=== PATIENT | female | born 1965 | race Caucasian/White ===

== ENCOUNTER 2017-05-03 10:39 | Emergency (ER) | payer MEDICAID ==
[~2017-05-03] VITALS: Ht 172.7 cm; Wt 69.0 kg
[2017-05-03] MEDS ORDERED: AZI25OT PO (11:53)
[2017-05-03] MEDS ORDERED: ALBU8HFA PO (11:53)
[2017-05-03] MEDS ORDERED: GUAI10SY2 PO (11:54)
[2017-05-03 12:03] VITALS: BP 142/108
== END 2017-05-03 12:04 | disposition home or self-care (01) ==
LOC: ER 10:40
DX: J20.9 Acute bronchitis, unspecified (principal); B34.9 Viral infection, unspecified; F17.200 Nicotine dependence, unspecified, uncomplicated
CPT/HCPCS: 71046; 99284; 99285

== ENCOUNTER 2018-09-25 22:18 | Emergency (ER) | payer MEDICAID ==
[~2018-09-25] VITALS: Ht 172.7 cm; Wt 65.9 kg
[2018-09-25] MEDS ORDERED: normal saline 1000ML IV soln IVB ONE (23:55)
[2018-09-25] MEDS ORDERED: famotidine/PF 10 mg/ml inj IV ONE (23:55)
[2018-09-25] MEDS ORDERED: haloperidol lactate 5mg/ml inj IM ONE (23:55)
[2018-09-25] MEDS ORDERED: ketorolac tromethamine 15mg/ml inj. IV ONE (23:55)
[2018-09-26 00:32] LABS: BASOPHILS # (AUTO) 0.1 X10'3 (0-0.2); BASOPHILS % (AUTO) 0.6 % (0-1); EOSINOPHILS % (AUTO) 0.2 % (0-6); HEMATOCRIT 46.2 % (35.0-45.0); LYMPHOCYTES # (AUTO) 1.6 X10'3 (1.1-4.8); LYMPHOCYTES % (AUTO) 10.8 % (21-51); MEAN CORPUSCULAR HEMOGLOBIN 31.4 PG (27.0-31.0); MEAN CORPUSCULAR HGB CONC 34.6 g/dL (33.0-36.5); MEAN CORPUSCULAR VOLUME 90.7 FL (78-98); MEAN PLATELET VOLUME 9.9 FL (7.4-10.4); MONOCYTES # (AUTO) 1.3 X10'3 (0-0.9); NEUTROPHILS # (AUTO) 11.6 X10'3 (1.8-7.7); NEUTROPHILS % (AUTO) 79.4 % (42-75); PLATELET COUNT 192 X10'3 (140-440); RED BLOOD COUNT 5.09 X10'6 (4.20-5.60); RED CELL DISTRIBUTION WIDTH 12.5 % (11.5-14.5); WHITE BLOOD COUNT 14.7 X10'3 (4.5-11.0)
--- NOTE | 2018-09-26 00:39 | NUR ---
pt meds given to the pt ,pt got nauseated started vomiting green vomitus,durga parr at bedside aware of pt condition going to order some nause meds.
[2018-09-26] MEDS ORDERED: diphenhydrAMINE 50 mg/ml inj IV ONE (00:40)
[2018-09-26] MEDS ORDERED: proCHLORperazine 10 MG/2 ml inj IV ONE (00:40)
[2018-09-26 00:45] LABS: ALANINE AMINOTRANSFERASE 23 U/L (12-78); ALBUMIN 4.5 G/DL (3.4-5.0); ALBUMIN/GLOBULIN RATIO 1.3 (1.1-1.5); ALKALINE PHOSPHATASE 60 IU/L (46-116); ANION GAP 14 (8-16); ASPARTATE AMINO TRANSFERASE 15 U/L (10-37); BILIRUBIN,TOTAL 0.9 MG/DL (0.1-1.0); BLOOD UREA NITROGEN 14 MG/DL (7-18); BUN/CREATININE RATIO 17.9 (6.6-38.0); CALCIUM 9.6 MG/DL (8.5-10.1); CHLORIDE 102 MMOL/L (99-107); CREATININE 0.78 MG/DL (0.40-0.90); GLUCOSE 112 MG/DL (70-104); SODIUM 142 MMOL/L (135-145); TOTAL CARBON DIOXIDE 26.3 MMOL/L (24-32); eGFR 78 ML/MIN
[2018-09-26 00:47] LABS: POTASSIUM 2.9 MMOL/L (3.5-5.1)
[2018-09-26] MEDS ORDERED: potassium Cl 20 mEq SR tablet PO STA (00:50)
--- NOTE | 2018-09-26 00:53 | NUR ---
pt urine not able to collect at this time as pt is nauseated and vomited .feeling weak not ready for it will try when pt is stable.
[2018-09-26] MEDS ORDERED: normal saline 1000ML IV soln IVB ONE (00:55)
--- NOTE | 2018-09-26 01:11 | NUR ---
discussed with durga parr regarding k+ tab as per karolyn wait for pt get stable and then administer as pt is nauseous.
[2018-09-26] MEDS ORDERED: ONDA4TAB6 PO (01:28)
--- NOTE | 2018-09-26 01:50 | NUR ---
notified nurse elkin that pt urine is pending,pt sleeping at this time.
[2018-09-26 02:48] VITALS: BP 129/55
[2018-09-26 02:52] LABS: CLARITY,URINE CLOUDY (Clear); COLOR,URINE YELLOW (Yellow); GLUCOSE, URINE NEGATIVE (Neg); KETONES,URINE >=80 mg/dl (Neg); LEUKOCYTE ESTERASE ,URINE SMALL (Neg); NITRITES, URINE POSITIVE (Neg); OCCULT BLOOD,URINE LARGE (Neg); PROTEIN,URINE 30 mg/dl (Neg); UROBILINOGEN,URINE 0.2 E.U/dL (0.2-1.0)
[2018-09-26 02:53] LABS: URINE HCG NEGATIVE (NEG)
[2018-09-26 02:56] LABS: UA COLLECTION TYPE NON-SPECIFIED
[2018-09-26 02:58] LABS: BACTERIA,URINE 4+ /HPF (Neg); MUCUS STRANDS NONE SEEN /LPF (Neg); RBC,URINE NONE SEEN /HPF (0-2); SQUAMOUS EPITHELIAL CELL,UR MODERATE /LPF (FEW)
--- NOTE | 2018-10-04 09:31 | NUR ---
3 ATTEMPTS MADE TO CALL PT REGARDING URINE CULTURE LAB RESULTS AND THE NEED TO CHANGE PERSCRIBED MEDICATION. NO ANSWER OR RETURN CALLS TO MESSAGES LEFT. LETTER SENT TO LISTED RESIDENCE.
== END 2018-09-26 02:52 | disposition home or self-care (01) ==
LOC: ER 22:19
DX: E87.6 Hypokalemia (principal); R11.2 Nausea with vomiting, unspecified; Z88.2 Allergy status to sulfonamides; Z79.899 Other long term (current) drug therapy
CPT/HCPCS: 36415; 80053; 81001; 81025; 85025; 87077; 87088; 87186; 96361; 96372; 96374; 96375; 99283; J0780; J1200; J1630; J1885; J3490

== ENCOUNTER 2021-07-17 06:14 | Day surgery (SDC) | payer MEDICAID ==
[~2021-07-17 06:14] MED LIST: ONDA4TAB6 PO
[2021-07-17 06:37] VITALS: BP 154/66
[2021-07-17 07:00] VITALS: BP 154/66
[2021-07-17] MEDS ORDERED: MEDR2.5T7 PO (07:23)
[2021-07-17] MEDS ORDERED: AMLO-708 PO (07:23)
[2021-07-17] MEDS ORDERED: ZOLP10TA PO (07:23)
[2021-07-17] MEDS ORDERED: ESTR0.5T29 PO (07:23)
[2021-07-17] MEDS ORDERED: HYDR-3972 PO (07:23)
[2021-07-17] MEDS ORDERED: INDLA80C PO (07:25)
[2021-07-17] MEDS ORDERED: LIDOcaine 1%/PF 5ML 10 MG/ML VIAL ONE (08:35)
[2021-07-17 09:24] VITALS: BP 154/66
[2021-07-17 09:57] LABS: GLUCOSE,CSF 60 MG/DL (40-75); TOTAL PROTEIN,CSF 63 MG/DL (15-45)
[2021-07-17 10:32] LABS: APPEARANCE,CSF CLEAR; CSF RBC 0 /CU MM (0); CSF SUPERNATANT COLOR COLORLESS; CSF VOLUME 14 ML; CSF WBC CT 3 /CU MM (0-5); TUBE# COUNTED 4
[2021-07-17 11:00] VITALS: BP 136/62
[2021-07-20 18:53] LABS: IMMUNOGLOBULIN G, QN CSF 2.6 mg/dL (0.0-6.7)
== END 2021-07-17 11:25 | disposition home or self-care (01) ==
LOC: SSTAY O 06:14
PROVIDERS: ATTEND Radiology Vascular & Interventional Radiology
DX: R90.82 White matter disease, unspecified (principal); I10 Essential (primary) hypertension; G89.29 Other chronic pain; Z88.2 Allergy status to sulfonamides; Z79.899 Other long term (current) drug therapy
CPT/HCPCS: 36415; 62328; 82040; 82042; 82164; 82784; 82945; 83873; 83916; 84157; 86617; 87476; 89051; J3490; 77003